=== PATIENT | male | born 1970 | race Caucasian/White ===

== ENCOUNTER 2017-11-24 05:34 | Emergency (ER) | payer OTHER ==
[~2017-11-24] VITALS: Ht 180.3 cm; Wt 85.0 kg
[2017-11-24 05:45] VITALS: Ht 180.3 cm; Wt 85.0 kg
[2017-11-24 06:39] LABS: HEMATOCRIT 45.3 % (42-52); MEAN CELL VOLUME 90.1 fL (80-100); MEAN CORPUSCULAR HEMOGLOBIN 31.8 pg (25-34); MEAN CORPUSCULAR HGB CONC 35.3 g/dl (32-36); MEAN PLATELET VOLUME 9.6 fL (7.4-10.4); PLATELET COUNT 233 K/uL (130-400); RED CELL DISTRIBUTION WIDTH CV 13.4 % (11.5-14.5); RED CELL DISTRIBUTION WIDTH SD 43.9 fL (36.4-46.3); WHITE BLOOD COUNT 14.28 K/uL (4.8-10.8)
[2017-11-24 07:05] LABS: CREATININE 0.87 mg/dl (0.60-1.40); POTASSIUM 3.7 mmol/L (3.5-5.1)
[2017-11-24 07:16] LABS: TOTAL PROTEIN 7.8 gm/dl (6.4-8.2)
--- NOTE | 2017-11-24 07:22 | EMERGENCY ROOM VISIT NOTE ---
ED Visit Note First contact with patient: 07:29 This patient was signed out to me at the end of shift. I have assumed care for the patient Dr. Breana Lovell DO. Patient reportedly had been dropped off at his sheets and was left by family. Patient is currently voluntary pending admission. Patient does have a prior history of schizophrenia. Patient does have active SI, auditory hallucinations with voices telling him commands that may make him stand people. Case management did attempt to contact family and friends. Blood work shows that the patient is medically cleared. Patient is pending a urine drug screen. 0820: I spoke with Psychiatric Case Management. They are working on placement for the patient. 1237: I spoke with the ED [facility] [place] [facility]. The patient is still pending placement in a facility. Patient was still pending voluntary inpatient psychiatric admission. Patient was signed out to the oncoming physician. Patient is medically clear. Was told that if the patient does does want to leave the patient should be made an involuntary 302.
--- NOTE | 2017-11-24 07:25 | EMERGENCY ROOM VISIT NOTE ---
History Report prepared by [place]: Catarina Soto Under the Supervision of: Dr. María Lovell D.O. First contact with patient: 05:39 Stated Complaint: MENTAL HEALTH ASSESSMENT History of Present Illness The patient is a 47 year old male who presents to the Emergency Room for a mental health evaluation. The patient states that he came to the ED because he wants to end his life. He states that over the past few days he has been hearing an increase in hearing voices. He reports that he tells them to leave him alone and threatens to cut the voices even though no one is there. He reports that it has been so bad that he sleeps with a knife in his pocket. He states that yesterday he took a handful of unknown pills to try to kill himself. He notes he had been drinking. He states that he has had attempts by cutting himself in the past and a few years ago he attempted to hang himself. The patient notes that he last saw a psychiatrist 3 weeks ago when he stayed at [facility]. He notes that he had a medication change at that time. The patient notes a history of depression and schizophrenia. The patient denies wanting to hurt anyone else. He notes that he eats off and on. The patient states that he lives with his family and worked on the pipeline at one point. He reports that he was driving around and ended up at [facility] where he called the help line who said to come in. He reports that he then drove himself here. Source of History: patient Onset: prior to arrival Position: other (global) Quality: other (mental health) Timing: other (episode) Note: The patient complains of hearing voices and wanting to hurt himself. The patient denies wanting to hurt anyone else. Review of Systems See HPI for pertinent positives & negatives. A total of 10 systems reviewed and were otherwise negative. Past Medical & Surgical Medical Problems: (1) Depression (2) Schizophrenia Family History Patient reports no known family medical history. Social History Alcohol Use: occasionally Marital Status: single Housing Status: lives with family Occupation Status: unemployed Allergies Coded Allergies: No Known Allergies (Unverified , 11/24/17) Physical Exam Vital Signs Date Time Temp Pulse Resp B/P (MAP) Pulse Ox O2 Delivery O2 Flow Rate FiO2 11/24/17 05:45 36.3 94 20 147/88 100 Room Air Physical Exam HEENT: Head - normocephalic and atraumatic Pupils are equal, round, and reactive to light. Extraocular eye muscles are intact, and sclera are anicteric. Nose - moist nasal mucosa without discharge. Mouth - moist buccal mucosa. Oropharynx is nonerythematous and there is no tonsillar exudate or edema noted. Neck: Supple; no JVD, nuchal rigidity, cervical lymphadenopathy. Heart: Regular rate and rhythm. There is a normal S1 and S2 with no murmurs, clicks, or gallops appreciated. Lungs: Clear to auscultation bilaterally with no wheezes, rales, or rhonchi. Abdomen: Soft, completely nontender, nondistended, with good bowel sounds. There are no palpable pulsatile masses or hepatosplenomegaly. There is no guarding, rigidity, or rebound noted. Extremities: No evidence of cyanosis, clubbing, or edema. There are easily palpable peripheral pulses. Skin: warm and dry with good turgor and no rashes. Psych: hearing voices. Suicidal thoughts with an attempt yesterday by overdose. Medical Decision & Procedures Laboratory Results 11/24/17 06:26 11/24/17 06:26 Test 11/24/17 05:42 11/24/17 05:53 11/24/17 06:26 Urine Color YELLOW Urine Appearance CLEAR (CLEAR) Urine pH 5.0 (4.5-7.5) Urine Specific [place] 1.020 (1.000-1.030) Urine Protein 2+ (NEG) Urine Glucose (UA) NEG (NEG) Urine Ketones TRACE (NEG) Urine Occult Blood NEG (NEG) Urine Nitrite NEG (NEG) Urine Bilirubin NEG (NEG) Urine Urobilinogen NEG (NEG) Urine Leukocyte Esterase NEG (NEG) Urine WBC (Auto) 1-5 /hpf (0-5) Urine RBC (Auto) 0-4 /hpf (0-4) Urine Hyaline Casts (Auto) 0 /lpf (0-5) Urine Epithelial Cells (Auto) 5-10 /lpf (0-5) Urine Bacteria (Auto) NEG (NEG) Red Blood Count 5.03 M/uL (4.7-6.1) Mean Corpuscular Volume 90.1 fL (80-100) Mean Corpuscular Hemoglobin 31.8 pg (25-34) Mean Corpuscular Hemoglobin Concent 35.3 g/dl (32-36) RDW Standard Deviation 43.9 fL (36.4-46.3) RDW Coefficient of Variation 13.4 % (11.5-14.5) Mean Platelet Volume 9.6 fL (7.4-10.4) Anion Gap 8.0 mmol/L (3-11) Est Creatinine Clear Calc Drug Dose 111.7 ml/min Estimated GFR () 119.1 Estimated GFR (Non- 102.8 BUN/Creatinine Ratio 11.3 (10-20) Calcium Level 9.0 mg/dl (8.5-10.1) Total Bilirubin 0.8 mg/dl (0.2-1) Direct Bilirubin 0.1 mg/dl (0-0.2) Aspartate Amino Transf (AST/SGOT) 33 U/L (15-37) Alanine Aminotransferase (ALT/SGPT) 30 U/L (12-78) Alkaline Phosphatase 95 U/L (45-117) Total Protein 7.8 gm/dl (6.4-8.2) Albumin 4.0 gm/dl (3.4-5.0) Thyroid Stimulating Hormone (TSH) 2.470 uIu/ml (0.300-4.500) Salicylates Level 3.4 mg/dl (2.8-20) Acetaminophen Level < 2 ug/ml (10-30) Ethyl Alcohol mg/dL < 3.0 mg/dl (0-3) Laboratory results per my review. ED Course 0541: Past medical records reviewed. The patient was evaluated in room A8. A complete history and physical exam was performed. Labs were drawn as above. 0724: The patient is medically cleared. 0730: The patient was signed out to Dr. Timothy Lee at change of shift. Medical Decision The patient is a 47 year old male who presents to the Emergency Room for a mental health evaluation. Differential diagnoses include acute psychosis, intentional overdose, thought disorder, mood disorder, suicidal ideation. LABS: White count 14.2 Stable H&H Normal glucose Normal renal function Salicylate level 3.4 Tylenol less than 2 Alcohol negative Urine is positive for trace ketones This is a 47-year-old male patient presents to the emergency department after an attempt to kill himself yesterday by overdose. Patient has a history of schizophrenia. I am unsure whether or not he is taking his medications. He had an inpatient psychiatric stages 3 weeks ago at [facility]. He is currently hearing voices and having thoughts of suicide. Medication Reconcilliation Current Medication List: was personally reviewed by me Blood Pressure Screening Patient's blood pressure: Elevated blood pressure Blood pressure disposition: Elevated BP felt to be situational Impression Primary Impression: Overdose Scribe Attestation The scribe's documentation has been prepared under my direction and personally reviewed by me in its entirety. I confirm that the note above accurately reflects all work, treatment, procedures, and medical decision making performed by me. Departure Information Dispostion Still a Patient Problem Qualifiers Primary Impression: Overdose Encounter type: initial encounter Injury intent: intentional self-harm Qualified Codes: T50.902A - Poisoning by unspecified drugs, medicaments and biological substances, intentional self-harm, initial encounter
[2017-11-24] MEDS ORDERED: COUGH DROP (SUGAR FREE) LOZ 24 LOZ/1 BOX LOZ STA (08:27)
[2017-11-24] MEDS ORDERED: BENZONATATE 100MG CAP PO ONE (08:30)
--- NOTE | 2017-11-24 08:50 | DIAGNOSTIC IMAGING REPORT ---
CHEST ONE VIEW PORTABLE HISTORY: 47 years-old Male cough acute cough COMPARISON: None available TECHNIQUE: Portable AP view of the chest FINDINGS: Cardiomediastinal and hilar silhouettes are within normal limits. Ill-defined interstitial opacities of the lateral left lung base. No pneumothorax or pleural effusion. No overt pulmonary edema or lobar airspace consolidation. Bones of the chest appear grossly intact. IMPRESSION: Ill-defined left basilar opacities suggest composite pulmonary vascularity or atelectasis with pneumonitis thought to be less likely. The above report was generated using voice recognition software. It may contain grammatical, syntax or spelling errors. Electronically signed by: Luis Starr M.D. 11/24/2017 8:48 AM Dictated Date/Time: 11/24/2017 8:47 AM
[2017-11-24] MEDS ORDERED: HALOPERIDOL 5 MG TAB PO STA (09:38)
[2017-11-24] MEDS ORDERED: NICOTINE 21 MG/24 HR TDSY TD STA (09:38)
[2017-11-24 10:27] VITALS: TEMP 37
[2017-11-24] MEDS ORDERED: OLAN1TAB15 PO (13:02)
[2017-11-24] MEDS ORDERED: AMPH30TA2 PO (13:02)
[2017-11-24] MEDS ORDERED: AMPH30CA3 PO (13:02)
[2017-11-24] MEDS ORDERED: BUPR200T2 PO (14:13)
[2017-11-24] MEDS ORDERED: NURSING VERBAL MED ORDER ONE (19:00)
[2017-11-24 19:10] VITALS: BP 122/79; PULSE 80; O2SAT 96
--- NOTE | 2017-11-25 00:06 | EMERGENCY ROOM VISIT NOTE ---
ED Visit Note First contact with patient: 17:27 The patient was taken in signout from Dr. Lee at the change of shift. Please see that note for details. The patient was pending mental health evaluation. The patient was accepted at [facility]. Secure transport was arranged. The patient was reassessed. He was without complaints. He was given dinner. The patient was accepted at the [facility]. Secure transport arranged. The patient was taken for further management.
== END 2017-11-24 19:11 | disposition short-term general hospital (02) ==
LOC: EDBD 05:34 → C.EDA 05:36
DX: T50.902A Poisoning by unspecified drugs, medicaments and biological substances, intentional self-harm, initial encounter (principal); R44.0 Auditory hallucinations; R45.851 Suicidal ideations; Z86.59 Personal history of other mental and behavioral disorders